=== PATIENT | female | born 2005 | race Caucasian/White ===

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

== ENCOUNTER 2025-01-02 13:20 | Outpatient (CLI) | payer OTHER, SELFPAY ==
--- NOTE | ~2025-01-02 | US_ITS ---
US breast RT limited 01/02/2025 14:21 Indication: Palpable right breast abnormality. Patient has history of neurofibromatosis type I. Procedure: High-resolution Limited right breast ultrasound Comparison: No prior studies for comparison. Findings: At 9:00, 6 cm from the nipple there is a 1.6 cm cyst. At 4:00, 5 cm from the nipple there i s a subcutaneous cyst measuring 9 x 8 x 1 mm. No suspicious masses to suggest malignancy. Impression: 1: Right breast cysts correspond to areas of palpable concern. No suspicious masses to suggest malign saul. BI-RADS CATEGORY 2 - BENIGN FINDINGS Reviewed, dictated and finalized at location A. Impression: 1: Right breast cysts correspond to areas of palpable concern. No suspicious ma sses to suggest malignancy. BI-RADS CATEGORY 2 - BENIGN FINDINGS
--- OUTSIDE RECORDS SUMMARY | 2025-01-02 13:24 | XMS_ITS | Clinical Summary ---
Author Organization [address] Address [address] [place] [id number] Care Team Providers Care Pesticide Control Inspector Name Role Phone Archie Sales MD Primary Care Provider [phone] Allergies No known active allergies Medications CALCIUM ORAL Take by mouth Act vidhya MELATONIN ORAL Take by mouth A ctive MULTIVITAMIN ORAL Take by mouth Active topiramate (TOPAMAX) 25 mg tablet Take 1 tablet (25 mg total) by mouth daily 4 Active riboflavin, vitamin B2, 400 mg tablet Take 400 mg by mouth daily 3 Active magnesium oxide 400 mg magnesium capsule Take 400 mg by mouth nightly 4 Active benzonatate (TESSALON) 200 mg capsuleIndicati ons:Bronchitis Take 1 capsule (200 mg total) by mouth 3 (three) times a day as needed for cough 30 capsule 4 Active albuterol HFA (PROVENTIL HFA,VENTOLIN HFA,PROAIR HFA) 90 mcg/actuation inhalerIndicati ons:Bronchitis Inhale 2 puffs every 6 (six) hours as needed for wheezing or shortness of breath 1 each 4 Active Active Problems No known active problems Surgical History Surgery Date Site/Laterality Comments OTHER SURGICAL HISTORY oral surgeries as an and wisdom teeth removed @ 14 years old. 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 Nystagmus correlates to Ne urofibromatosis Social History Tobacco Use Types Packs/Day Years Used Date Smoking Tobacco: Never Smokeless Tobacco: Never Tobacco Cessation:Counseling Given: Not Answered AUDIT-C Answer Date Recorded Q1: How often do you have a drink containing alc ohol? 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 Gender Identity Not on file Sexual Orientation Not on file Obstetrics History Last Filed Vital Signs Vital Sign Reading Time Taken Comments Blood Pressure 117/81 04/27/2024 11:39 AM CDT Pulse 96 04/27/2024 11:39 AM CDT Temperature 36.9 C (98.5 F) 04/27/2024 11:39 AM CDT Respiratory Rate 20 04/27/2024 11:39 AM CDT Oxygen Saturation 99% 04/27/2024 11:39 AM CDT Inhaled Oxygen Concentration - - Weight 59.1 kg (130 lb 6.4 oz) 04/27/2024 11:39 AM CDT Height 160 cm (5' 3 ) 04/27/2024 11:39 AM CDT Body Mass Index 23.1 04/27/2024 11:39 AM CDT Plan of Treatment Health Maintenance Due Date Last Done Comments Depression Screening 2003 Hepatitis C Screening 2003 Varicella Vaccines (1 of 2 - 13+ 2-dose series) 12/29/2016 Meningococcal B Vaccine (1 of 2 - Standard) 2019 Hepatitis B Screening 12/29/2021 Regular Well Visit/Exam 18-64 12/29/2021 Covid-19 Vaccine ( season) 2024 09/21/2021, 01/15/2021, 12/25/2020 Influenza Vaccine (#1) 2024 3, 07/28/2022, 07/18/2021, Additional history exists DTaP/Tdap/Td Vaccine (2 - Td or Tdap) 06/04/2025 06/04/2015 HPV Vaccines Completed 07/31/2017, 07/01, 06/04/2015 Meningococcal Vaccine Completed 08/18/2020, 015 Pneumococcal vaccine <65 Aged Out No longer eligible based on patient's age to complete this topic Insurance [facility] [id number] [facility] [id number] Care Teams Pesticide Control Inspector Relationship Specialty Start Date End Date Archie Saels MD [address] [place] [address] PCP - General Pediatrics 09/28/21
--- OUTSIDE RECORDS SUMMARY | 2025-01-02 13:24 | XMS_ITS | Referral Summary ---
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
== END 2025-01-02 13:21 | disposition home or self-care (01) ==
LOC: ANHIMG 13:22
PROVIDERS: PCP Pediatrics
DX: N60.01 Solitary cyst of right breast (principal)
CPT/HCPCS: 76642